=== PATIENT | female | born 1985 | race Caucasian/White ===

== ENCOUNTER 2017-05-09 19:26 | Emergency (ER) | payer SELFPAY ==
[2017-05-10 00:14] VITALS: BP 98/65
== END 2017-05-10 00:14 | disposition home or self-care (01) ==
LOC: ED 19:26
DX: J40 Bronchitis, not specified as acute or chronic (principal); R07.89 Other chest pain; M54.9 Dorsalgia, unspecified; Z88.8 Allergy status to other drugs, medicaments and biological substances
CPT/HCPCS: J7512; J7613; J7644